=== PATIENT | female | born 1970 | race Two or more races ===

== ENCOUNTER 2020-09-25 10:45 | Inpatient (IN) | payer OTHER ==
[~2020-09-25] VITALS: Ht 165.1 cm; Wt 90.7 kg
[2020-09-25] MEDS ORDERED: MEGACE PO (13:52)
[2020-09-28] MEDS ORDERED: MEGESTROL ACETA40 MG PO (08:05)
== END 2020-09-30 13:02 | disposition home or self-care (01) | DRG 743 ==
LOC: OB/GYN 09-27 06:03 → O/R 09-27 06:03 → OB/GYN 09-27 08:45
PROVIDERS: ADMIT Obstetrics & Gynecology; ATTEND Obstetrics & Gynecology
PROC: 0UB70ZZ Excision of Bilateral Fallopian Tubes, Open Approach (ICD-10-PCS; 2020-09-27)
PROC: 0UT90ZZ Resection of Uterus, Open Approach (ICD-10-PCS; principal; 2020-09-27 08:45)
DX: N72 Inflammatory disease of cervix uteri (principal); N80.0 Endometriosis of uterus; D25.1 Intramural leiomyoma of uterus; D25.0 Submucous leiomyoma of uterus; D25.2 Subserosal leiomyoma of uterus; D64.9 Anemia, unspecified; N93.9 Abnormal uterine and vaginal bleeding, unspecified